=== PATIENT | female | born 2000 | race Caucasian/White ===

== ENCOUNTER 2023-09-10 23:33 | Emergency (ER) | payer MEDICAID ==
[~2023-09-10] VITALS: Ht 167.6 cm; Wt 112.0 kg
[2023-09-10 23:40] VITALS: O2SAT 98
[2023-09-11] MEDS ORDERED: DEXAMETHASONE 10 MG/ML VIAL IM ONE (00:30)
[2023-09-11] MEDS ORDERED: IBUPROFEN 600MG TABLET PO ONE (00:30)
[2023-09-11 00:37] VITALS: BP 136/74; PULSE 101; RESP 17; TEMP 98.5
[2023-09-11] MEDS ORDERED: IBUP-2028 MT (01:36)
== END 2023-09-11 01:44 | disposition home or self-care (01) ==
LOC: ER 23:33
DX: J02.9 Acute pharyngitis, unspecified (principal); Z20.822 Contact with and (suspected) exposure to COVID-19; Z88.9 Allergy status to unspecified drugs, medicaments and biological substances
CPT/HCPCS: 96372; 81025; 99283; 87430; 87070; 87426; J1100; C9803; Z7610